=== PATIENT | female | born 1985 | race Two or more races ===

== ENCOUNTER 2022-04-20 13:20 | Day surgery (SDC) | payer OTHER | END 2022-04-20 22:25 | disposition home or self-care (01) | LOC: CIR.AMB 13:20 | PROVIDERS: ATTEND Obstetrics & Gynecology Maternal & Fetal Medicine | DX: O02.1 Missed abortion (principal); O72.2 Delayed and secondary postpartum hemorrhage; Z20.822 Contact with and (suspected) exposure to COVID-19; Z87.891 Personal history of nicotine dependence ==

== ENCOUNTER 2022-12-15 18:38 | Outpatient (CLI) | payer OTHER | END 2022-12-15 21:00 | disposition home or self-care (01) | LOC: NST 18:38 | PROVIDERS: ATTEND Obstetrics & Gynecology Maternal & Fetal Medicine | DX: Z34.82 Encounter for supervision of other normal pregnancy, second trimester (principal); R10.2 Pelvic and perineal pain ==

== ENCOUNTER 2023-03-24 13:40 | Inpatient (IN) | payer OTHER ==
[~2023-03-24] VITALS: Ht 167.6 cm; Wt 86.2 kg
[2023-04-08] MEDS ORDERED: FAMOTIDINE/PF 20 MG/2 ML VIAL IV PUSH PRN (17:30)
[2023-04-08] MEDS ORDERED: AMPICILLIN SODIUM 2,000 MG VIAL IV ONE (17:30)
[2023-04-08] MEDS ORDERED: PRENATAL TABLE1 EAC4 PO (18:12)
[2023-04-08] MEDS ORDERED: PEPCID AC20 MG PO (18:12)
[2023-04-08 18:22] LABS: HEMATOCRIT 36.4 % (36.0-45.00); HEMOGLOBIN 12.5 g/dL (12.0-15.00); MEAN CORPUSCULAR HEMOGLOBIN 32.6 pg (27.00-32.0); MEAN CORPUSCULAR HGB CONC 34.3 g/dl (32.0-36.0); PLATELET COUNT 179 K/uL (150-450); RED BLOOD COUNT 3.83 M/uL (4.00-6.00)
[2023-04-08 18:29] LABS: INR < 0.93; PARTIAL THROMBOPLASTIN TIME 25.4 SECONDS (22.0-34.0); PROTHROMBIN TIME 9.5 SECONDS (9.0-11.5)
[2023-04-08 18:33] LABS: ALBUMIN 3.2 gm/dL (3.4-5.0); BILIRUBIN TOTAL 0.45 mg/dL (0.3-1.2); CALCIUM 10.1 mg/dL (8.5-10.1); CREATININE SERUM 0.6 mg/dL (0.55-1.02); GFR 112.49; GLOBULINA 3.7 G/DL (2.4-3.5); POTASSIUM 4.33 mEq/L (3.5-5.1); TOTAL PROTEIN 6.9 gm/dL (6.4-8.2)
[2023-04-08] MEDS ORDERED: OXYTOCIN 500 ML IV ONE (19:15)
[2023-04-08] MEDS ORDERED: MORPHINE SULFATE 4 MG/ML VIAL IV PRN (20:00)
[2023-04-08] MEDS ORDERED: AMPICILLIN SODIUM 1,000 MG VIAL IV SCH (21:00)
[2023-04-08] MEDS ORDERED: ONDANSETRON HCL 2 MG/ML VIAL IV ONE (22:00)
[2023-04-08] MEDS ORDERED: RINGERS SOLUTION,LACTATED 1,000 ML IV SCH (23:00)
[2023-04-08] MEDS ORDERED: CHLORHEXIDINE GLUCONATE 120 ML BOTTLE TOP ONE (23:05)
[2023-04-08] MEDS ORDERED: ERYTHROMYCIN BASE 1 GM TUBE OP ONE (23:05)
[2023-04-09] MEDS ORDERED: CHLORHEXIDINE GLUCONATE 120 ML BOTTLE TOP SCH (01:15)
[2023-04-09] MEDS ORDERED: ERYTHROMYCIN BASE 1 GM TUBE OP SCH (01:15)
[2023-04-09] MEDS ORDERED: IBUprofen 400 MG TABLET PO PRN (01:15)
[2023-04-09] MEDS ORDERED: LIDOCAINE HCL 1% 200MG/20ML VIAL IJ SCH (01:15)
[2023-04-09] MEDS ORDERED: OXYTOCIN 1,000 ML IV SCH (01:30)
[2023-04-09 08:54] LABS: HEMOGLOBIN 10.7 g/dL (12.0-15.00); MEAN CELL VOLUME 93.9 fL (80.00-100.00); MEAN CORPUSCULAR HEMOGLOBIN 32.5 pg (27.00-32.0); MEAN CORPUSCULAR HGB CONC 34.6 g/dl (32.0-36.0); PLATELET COUNT 156 K/uL (150-450); RED CELL DISTRIBUTION WIDTH 13.2 % (11.5-14.5)
[2023-04-10] MEDS ORDERED: FAMOtidine 20 MG TABLET PO SCH (05:00)
== END 2023-04-12 18:45 | disposition home or self-care (01) | DRG 807 ==
LOC: LDR 04-08 13:39 → OB/GYN 04-08 17:16 → LDR 04-08 17:16 → OB/GYN 04-08 18:11 → LDR 04-08 18:13 → OB/GYN 04-09 03:59
PROVIDERS: Obstetrics & Gynecology; ADMIT Obstetrics & Gynecology Maternal & Fetal Medicine; ATTEND Obstetrics & Gynecology Maternal & Fetal Medicine
PROC: 4A1HXCZ Monitoring of Products of Conception, Cardiac Rate, External Approach (ICD-10-PCS; 2023-04-08)
PROC: 10E0XZZ Delivery of Products of Conception, External Approach (ICD-10-PCS; principal; 2023-04-09)
PROC: 0HQ9XZZ Repair Perineum Skin, External Approach (ICD-10-PCS; 2023-04-09)
DX: O70.0 First degree perineal laceration during delivery (principal); Z37.0 Single live birth; O99.824 Streptococcus B carrier state complicating childbirth; Z3A.39 39 weeks gestation of pregnancy; Z20.822 Contact with and (suspected) exposure to COVID-19

== ENCOUNTER 2023-03-30 15:29 | Outpatient (CLI) | payer OTHER | END 2023-03-30 17:38 | disposition home or self-care (01) | LOC: NST 15:29 | PROVIDERS: ATTEND Obstetrics & Gynecology Maternal & Fetal Medicine | DX: Z34.83 Encounter for supervision of other normal pregnancy, third trimester (principal) ==